=== PATIENT | male | born 1950 ===

== ENCOUNTER → 2019-10-29 14:55 | Outpatient (CLI) | payer BC ==
[2019-10-29 15:41] LABS: ANION GAP 16.3 mmol/L (8-16); CALCIUM 9.8 mg/dL (8.5-10.1); CARBON DIOXIDE 21.8 mmol/L (21.0-32.0); CREATININE - SERUM 2.5 mg/dL (0.6-1.3); POTASSIUM - SERUM 5.1 mmol/L (3.5-5.1)
== END | disposition home or self-care (01) ==
LOC: D.LABREF 14:55
PROVIDERS: ATTEND Internal Medicine
DX: I96 Gangrene, not elsewhere classified (principal)